=== PATIENT | female | born 1995 | race Caucasian/White ===

== ENCOUNTER 2019-10-04 09:38 | Emergency (ER) | payer OTHER ==
[2019-10-04 09:59] VITALS: BP 107/67
--- NOTE | 2019-10-04 10:54 | UC ---
Abdominal Pain Female HPI - HPI Summary HPI Summary: LESS THAN 5 MINUTES OF SHARP EPIGASTRIC PAIN THIS MORNING WHEN SHE WOKE UP. STATES IT TOOK HER BREATH AWAY BUT MOSTLY RESOLVED AFTER A FEW MINUTES. NO NAUSEA, FEVER, URINARY SX, CHANGE IN BOWEL HABITS. NO NEW OR CHRONIC MEDICATIONS. VAGINAL DELIVERY ABOUT A MONTH AND A HALF AGO. HAS HAD SEX "A COUPLE OF TIMES" SINCE THEN. HAD 2 SIMILAR EPISODES OF THIS PAIN WHILE . - History of Current Complaint Chief Complaint: UCAbdominalPain Stated Complaint: HERNANDEZ UPPER ABDOMIN PAIN Time Seen by Provider: 10/04/19 10:16 Hx Obtained From: Patient Hx Last Menstrual Period: 08/18/19 delivered Onset/Duration: Sudden Onset, Lasting Minutes, Resolved Severity Initially: Moderate Severity Currently: Mild Pain Intensity: 6 Pain Scale Used: 0-10 Numeric Location: Epigastric Radiates: No Character: Sharp Aggravating Factor(s): Nothing Alleviating Factor(s): Spontaneous Resolution Associated Signs and Symptoms: Positive: Negative Allergies/Adverse Reactions: Allergies Allergy/AdvReac Type Severity Reaction Status Date / Time No Known Allergies Allergy Verified 10/04/19 09:51 Home Medications: Home Medications NK [No Home Medications Reported] 10/04/19 [History Confirmed 10/04/19] PMH/Surg Hx/FS Hx/Imm Hx Psychological History: Depression - Surgical History Surgical History: None - Family History Known Family History: Positive: Other - Alcoholism Negative: Cardiac Disease, Diabetes - Social History Alcohol Use: Occasionally Substance Use Type: None Smoking Status (MU): Never Smoked Tobacco Review of Systems All Other Systems Reviewed And Are Negative: Yes Constitutional: Positive: Negative Respiratory: Positive: Negative Cardiovascular: Positive: Negative Gastrointestinal: Positive: Abdominal Pain. Negative: Vomiting, Diarrhea, Nausea Genitourinary: Positive: Negative Physical Exam Triage Information Reviewed: Yes Appearance: Well-Appearing, No Pain Distress, Well-Nourished Vital Signs: Initial Vital Signs Temp 98 F 10/04/19 09:48 Pulse 79 10/04/19 09:48 Resp 16 10/04/19 09:48 BP 107/67 10/04/19 09:48 Pulse Ox 100 10/04/19 09:48 Laboratory Tests 10/04/19 10/04/19 10:16 10:18 POC Urine Color Yellow POC Urine Clarity Clear POC Urine pH 7.0 POC Ur Specif [place] 1.020 POC Urine Protein Negative POC Ur Glucose (UA) Negative POC Urine Ketones Negative POC Urine Blood Negative POC Urine Nitrite Negative POC Urine Bilirubin Negative POC Urine Urobilinogen 0.2 POC U Leukocyte Esteras Negative POC Ur Test Negative Vital Signs Reviewed: Yes Eyes: Positive: Conjunctiva Clear ENT: Positive: Hearing grossly normal Neck: Positive: Supple Respiratory Exam: Normal Cardiovascular Exam: Normal Abdomen Description: Positive: Nontender, Soft. Negative: CVA Tenderness (R), CVA Tenderness (L), Distended, Guarding Bowel Sounds: Positive: Present Musculoskeletal: Positive: No Edema Neurological: Positive: Alert Psychological: Positive: Age Appropriate Behavior Skin: Negative: Rashes Abd Pain Female Course/Dx - Course Course Of Treatment: SUDDEN ONSET OF EPIGASTRIC ABDOMINAL PAIN THIS MORNING WHEN WAKING UP. PATIENT STATES HER SYMPTOMS MOSTLY RESOLVED AFTER A FEW MINUTES. PAIN IS CURRENTLY MINIMAL. SHE HAS HAD NO OTHER SYMPTOMS. NO FEVER, NAUSEA, URINARY SYMPTOMS. ADVISED CAREFUL OBSERVATION AT HOME. STAY HYDRATED. FOLLOW AN EASY DIET. TO THE ER WITHOUT FAIL IF HER SYMPTOMS WORSEN. - Differential Dx/Diagnosis Provider Diagnosis: Epigastric abdominal pain Discharge ED - Sign-Out/Discharge Documenting (check all that apply): Patient Departure All imaging exams completed and their final reports reviewed: No Studies - Discharge Plan Condition: Stable Disposition: HOME Patient Education Materials: Abdominal Pain (ED) Referrals: Luke Mi MD [Primary Care Provider] - 1 Week Additional Instructions: YOUR PAIN HAS DRAMATICALLY IMPROVED ALREADY. PHYSICAL EXAM WAS NORMAL. NO INDICATION FOR ANY ACUTE INTERVENTION AT PRESENT. REST, HYDRATE, EASY DIET. BLAND FOODS AND CLEAR LIQUIDS FOR NOW. AVOID DAIRY FOod, GREASY FOOD, SPICY FOOD AND CAFFEINE. FOLLOW-UP WITH YOUR PRIMARY CARE PHYSICIAN. GO TO THE ER WITHOUT FAIL IF YOU DEVELOP WORSENING PAIN, FEVER, NAUSEA/VOMITING OR ANY OTHER WORSENING SYMPTOMS. ABDOMINAL PAIN: There are many causes of abdominal pain. Pain can mean a serious problem requiring surgery (such as appendicitis), or an innocent problem which goes away on its own (such as a viral infection). Often, time must pass to determine the cause of pain. The physician does not feel that hospitalization is necessary, at present. Conditions may change, however, within the next 24 hours. GO TO THE ER WITHOUT FAIL IF ANY OF THE FOLLOWING OCCUR: 1) Pain which becomes more severe, steady, or becomes concentrated in one specific area. Also, pain which is more severe with movement or coughing. 2) Vomiting which persists or becomes more frequent. 3) Blood in the vomitus, urine, or bowel movements. Blood in the stool may have a tarry or black appearance. 4) Shaking chills or fever greater than 100 degrees F. 5) The abdomen becomes more distended or swollen. 6) Bowel movements cease. 7) Failure to improve as expected. - Billing Disposition and Condition Condition: STABLE Disposition: Home
== END 2019-10-04 10:51 | disposition home or self-care (01) ==
LOC: UCEAST 09:38
DX: R10.13 Epigastric pain (principal)
CPT/HCPCS: 81003; 84702; 99212; G0463